=== PATIENT | female | born 1975 | race American Indian/Alaskan Native ===

== ENCOUNTER 2021-09-20 10:11 | Inpatient (IN) | payer OTHER ==
[2021-09-20] MEDS ORDERED: METOCLOPRAMIDE 10 MG/2 ML INJ IV ONE (10:55)
[2021-09-20] MEDS ORDERED: diphenhydrAMINE 50 MG/ML VIAL IV ONE (10:55)
[2021-09-20] MEDS ORDERED: SODIUM CHLORIDE 0.9% 1000 ML 1,000 ML IV ONE (10:55)
--- NOTE | 2021-09-20 11:01 | Emergency Department Report ---
ED General Adult HPI - General Chief complaint: Altered Mental Status Stated complaint: ALTERED MENTAL STATUS Time Seen by Provider: 09/20/21 10:43 Source: patient, EMS Mode of arrival: Stretcher Limitations: Other - History of Present Illness Initial comments: 46-year-old female with past medical history of type 1 diabetes, hypertension, neuropathic pain, depression, anxiety, autonomic dysfunction, and colon polyps presents to the hospital with abdominal pain, nausea, vomiting, and decreased responsiveness. Patient presents with discharge papers from [facility] with a diagnosis of colitis dated from September 13. Patient did have a CAT scan performed at that time ever, results are not available on discharge papers. Patient presented with abdominal pain, nausea, and vomiting for the past 2 days. Patient will not communicate reliably here in the ED. When I ask if she is recently at [facility] she states it was [place] which is contrary to her discharge paperwork. History obtained from EMS and nursing report. They state that family reported that patient often refused to speak when she gets like this and is in pain. Glucose elevated in the 300s as per EMS - Related Data Allergies Allergy/AdvReac Type Severity Reaction Status Date / Time YONI Inhibitors AdvReac Swelling Verified 09/20/21 11:31 amlodipine AdvReac Swelling Verified 09/20/21 11:31 morphine AdvReac Swelling Verified 09/20/21 11:31 ED Review of Systems ROS: Stated complaint: ALTERED MENTAL STATUS Other details as noted in HPI Comment: Unobtainable due to pts medical conditions ED Physical Exam - General Limitations: No Limitations - Other Other exam information: General: No acute distress Head: Atraumatic Eyes: normal appearance ENT: Moist mucous membranes Neck: Normal appearance, no midline tenderness Chest: Clear to auscultation bilaterally CV: Tachycardic regular rhythm Abdomen: Soft, normal bowel sounds, generalized tenderness greatest in the lower abdomen. No rebound or guard Back: Normal inspection Extremity: Normal inspection, full range of motion Neuro: Eyes closed but open spontaneous with equal handgrip. Not reliably answering questions or following commands Psych: Appropriate behavior Skin: No rash ED Course Vital Signs 09/20/21 09/20/21 09/20/21 10:32 11:29 11:31 Temperature 97.3 F L 97.8 F Pulse Rate 110 H 104 H 104 H Respiratory 20 18 14 Rate Blood Pressure 195/116 Blood Pressure 200/110 [Left] O2 Sat by Pulse 100 97 100 Oximetry 09/20/21 09/20/21 09/20/21 12:00 12:41 13:01 Temperature Pulse Rate 105 H 102 H 102 H Respiratory 13 18 20 Rate Blood Pressure 195/116 195/116 182/104 Blood Pressure [Left] O2 Sat by Pulse 100 100 Oximetry 09/20/21 13:31 Temperature Pulse Rate 102 H Respiratory 16 Rate Blood Pressure 182/104 Blood Pressure [Left] O2 Sat by Pulse 98 Oximetry ED Medical Decision Making - Lab Data Result diagrams: 09/20/21 11:07 09/20/21 11:07 Lab Results 09/20/21 09/20/21 09/20/21 Range/Units 11:07 11:07 11:07 WBC 5.9 (4.5-11.0) K/mm3 RBC 4.03 (3.65-5.03) M/mm3 Hgb 12.2 (10.1-14.3) gm/dl Hct 34.2 (30.3-42.9) % MCV 85 (79-97) fl MCH 30 (28-32) pg MCHC 36 H (30-34) % RDW 14.0 (13.2-15.2) % Plt Count 314 (140-440) K/mm3 Lymph % (Auto) 24.6 (13.4-35.0) % [place] % (Auto) 5.1 (0.0-7.3) % Eos % (Auto) 0.5 (0.0-4.3) % Baso % (Auto) 1.0 (0.0-1.8) % Lymph # (Auto) 1.4 (1.2-5.4) K/mm3 [place] # (Auto) 0.3 (0.0-0.8) K/mm3 Eos # (Auto) 0.0 (0.0-0.4) K/mm3 Baso # (Auto) 0.1 (0.0-0.1) K/mm3 Seg Neutrophils % 68.8 (40.0-70.0) % Seg Neutrophils # 4.0 (1.8-7.7) K/mm3 VBG pH (7.320-7.420) Sodium 140 (137-145) mmol/L Potassium 3.6 (3.6-5.0) mmol/L Chloride 102.2 (98-107) mmol/L Carbon Dioxide 29 (22-30) mmol/L Anion Gap 12 mmol/L BUN 11 (7-17) mg/dL Creatinine 1.0 (0.6-1.2) mg/dL Estimated GFR > 60 ml/min BUN/Creatinine Ratio 11 % Glucose 320 H (65-100) mg/dL POC Glucose (70-105) mg/dL Lactic Acid (0.7-2.0) mmol/L Calcium 8.7 (8.4-10.2) mg/dL Total Bilirubin 0.30 (0.1-1.2) mg/dL AST 25 (5-40) units/L ALT 22 (7-56) units/L Alkaline Phosphatase 61 (35-129) units/L Ammonia (25-60) umol/L Total Protein 5.7 L (6.3-8.2) g/dL Albumin 2.6 L (3.9-5) g/dL Albumin/Globulin Ratio 0.8 % Lipase 26 (13-60) units/L HCG, Qual Negative (Negative) Urine RBC (Auto) (0.0-6.0) /HPF U Epithel Cells (Auto) (0-13.0) /HPF Urine Opiates Screen Urine Methadone Screen Ur Barbiturates Screen Ur Phencyclidine Scrn Ur Amphetamines Screen U Benzodiazepines Scrn Urine Cocaine Screen U Marijuana (THC) Screen Drugs of Abuse Note Plasma/Serum Alcohol (0-0.07) % 09/20/21 09/20/21 09/20/21 Range/Units 11:07 11:07 11:07 WBC (4.5-11.0) K/mm3 RBC (3.65-5.03) M/mm3 Hgb (10.1-14.3) gm/dl Hct (30.3-42.9) % MCV (79-97) fl MCH (28-32) pg MCHC (30-34) % RDW (13.2-15.2) % Plt Count (140-440) K/mm3 Lymph % (Auto) (13.4-35.0) % [place] % (Auto) (0.0-7.3) % Eos % (Auto) (0.0-4.3) % Baso % (Auto) (0.0-1.8) % Lymph # (Auto) (1.2-5.4) K/mm3 [place] # (Auto) (0.0-0.8) K/mm3 Eos # (Auto) (0.0-0.4) K/mm3 Baso # (Auto) (0.0-0.1) K/mm3 Seg Neutrophils % (40.0-70.0) % Seg Neutrophils # (1.8-7.7) K/mm3 VBG pH 7.519 H (7.320-7.420) Sodium (137-145) mmol/L Potassium (3.6-5.0) mmol/L Chloride (98-107) mmol/L Carbon Dioxide (22-30) mmol/L Anion Gap mmol/L BUN (7-17) mg/dL Creatinine (0.6-1.2) mg/dL Estimated GFR ml/min BUN/Creatinine Ratio % Glucose (65-100) mg/dL POC Glucose (70-105) mg/dL Lactic Acid 1.70 (0.7-2.0) mmol/L Calcium (8.4-10.2) mg/dL Total Bilirubin (0.1-1.2) mg/dL AST (5-40) units/L ALT (7-56) units/L Alkaline Phosphatase (35-129) units/L Ammonia 28.0 (25-60) umol/L Total Protein (6.3-8.2) g/dL Albumin (3.9-5) g/dL Albumin/Globulin Ratio % Lipase (13-60) units/L HCG, Qual (Negative) Urine RBC (Auto) (0.0-6.0) /HPF U Epithel Cells (Auto) (0-13.0) /HPF Urine Opiates Screen Urine Methadone Screen Ur Barbiturates Screen Ur Phencyclidine Scrn Ur Amphetamines Screen U Benzodiazepines Scrn Urine Cocaine Screen U Marijuana (THC) Screen Drugs of Abuse Note Plasma/Serum Alcohol (0-0.07) % 09/20/21 09/20/21 09/20/21 Range/Units 11:07 12:32 Unknown WBC (4.5-11.0) K/mm3 RBC (3.65-5.03) M/mm3 Hgb (10.1-14.3) gm/dl Hct (30.3-42.9) % MCV (79-97) fl MCH (28-32) pg MCHC (30-34) % RDW (13.2-15.2) % Plt Count (140-440) K/mm3 Lymph % (Auto) (13.4-35.0) % [place] % (Auto) (0.0-7.3) % Eos % (Auto) (0.0-4.3) % Baso % (Auto) (0.0-1.8) % Lymph # (Auto) (1.2-5.4) K/mm3 [place] # (Auto) (0.0-0.8) K/mm3 Eos # (Auto) (0.0-0.4) K/mm3 Baso # (Auto) (0.0-0.1) K/mm3 Seg Neutrophils % (40.0-70.0) % Seg Neutrophils # (1.8-7.7) K/mm3 VBG pH (7.320-7.420) Sodium (137-145) mmol/L Potassium (3.6-5.0) mmol/L Chloride (98-107) mmol/L Carbon Dioxide (22-30) mmol/L Anion Gap mmol/L BUN (7-17) mg/dL Creatinine (0.6-1.2) mg/dL Estimated GFR ml/min BUN/Creatinine Ratio % Glucose (65-100) mg/dL POC Glucose 267 H (70-105) mg/dL Lactic Acid (0.7-2.0) mmol/L Calcium (8.4-10.2) mg/dL Total Bilirubin (0.1-1.2) mg/dL AST (5-40) units/L ALT (7-56) units/L Alkaline Phosphatase (35-129) units/L Ammonia (25-60) umol/L Total Protein (6.3-8.2) g/dL Albumin (3.9-5) g/dL Albumin/Globulin Ratio % Lipase (13-60) units/L HCG, Qual (Negative) Urine RBC (Auto) 12.0 (0.0-6.0) /HPF U Epithel Cells (Auto) 6.0 (0-13.0) /HPF Urine Opiates Screen Urine Methadone Screen Ur Barbiturates Screen Ur Phencyclidine Scrn Ur Amphetamines Screen U Benzodiazepines Scrn Urine Cocaine Screen U Marijuana (THC) Screen Drugs of Abuse Note Plasma/Serum Alcohol < 0.01 (0-0.07) % 09/20/21 Range/Units Unknown WBC (4.5-11.0) K/mm3 RBC (3.65-5.03) M/mm3 Hgb (10.1-14.3) gm/dl Hct (30.3-42.9) % MCV (79-97) fl MCH (28-32) pg MCHC (30-34) % RDW (13.2-15.2) % Plt Count (140-440) K/mm3 Lymph % (Auto) (13.4-35.0) % [place] % (Auto) (0.0-7.3) % Eos % (Auto) (0.0-4.3) % Baso % (Auto) (0.0-1.8) % Lymph # (Auto) (1.2-5.4) K/mm3 [place] # (Auto) (0.0-0.8) K/mm3 Eos # (Auto) (0.0-0.4) K/mm3 Baso # (Auto) (0.0-0.1) K/mm3 Seg Neutrophils % (40.0-70.0) % Seg Neutrophils # (1.8-7.7) K/mm3 VBG pH (7.320-7.420) Sodium (137-145) mmol/L Potassium (3.6-5.0) mmol/L Chloride (98-107) mmol/L Carbon Dioxide (22-30) mmol/L Anion Gap mmol/L BUN (7-17) mg/dL Creatinine (0.6-1.2) mg/dL Estimated GFR ml/min BUN/Creatinine Ratio % Glucose (65-100) mg/dL POC Glucose (70-105) mg/dL Lactic Acid (0.7-2.0) mmol/L Calcium (8.4-10.2) mg/dL Total Bilirubin (0.1-1.2) mg/dL AST (5-40) units/L ALT (7-56) units/L Alkaline Phosphatase (35-129) units/L Ammonia (25-60) umol/L Total Protein (6.3-8.2) g/dL Albumin (3.9-5) g/dL Albumin/Globulin Ratio % Lipase (13-60) units/L HCG, Qual (Negative) Urine RBC (Auto) (0.0-6.0) /HPF U Epithel Cells (Auto) (0-13.0) /HPF Urine Opiates Screen Negative Urine Methadone Screen Negative Ur Barbiturates Screen Negative Ur Phencyclidine Scrn Negative Ur Amphetamines Screen Negative U Benzodiazepines Scrn Negative Urine Cocaine Screen Negative U Marijuana (THC) Screen Negative Drugs of Abuse Note Disclamer Plasma/Serum Alcohol (0-0.07) % - Radiology Data Radiology results: report reviewed CT head/brain wo con INDICATION / CLINICAL INFORMATION: 46 years Female; ams vs refusal to speak. TECHNIQUE: Routine CT head without contrast. All CT scans at this location are performed using CT dose reduction for [employer] by means of automated exposure control. COMPARISON: None. FINDINGS: BRAIN / INTRACRANIAL CONTENTS: The motion degrades the image quality. However, the brain parenchyma appears to demonstrate appropriate attenuation. The ventricular system is within normal limits in size and configuration. There is no clear CT evidence of acute intracranial hemorrhage or significant mass effect. ORBITS: No significant abnormality of visualized orbits. SINUSES / MASTOIDS: There is complete opacification of the right at frontal and sinus and anterior ethmoid air cells. Mild mucosal thickening and opacification along the posterior right maxillary sinus. CRANIOCERVICAL JUNCTION: No significant abnormality. ADDITIONAL FINDINGS: None. IMPRESSION: 1. There is no clear CT evidence of acute intracranial process. CT ABDOMEN AND PELVIS WITH CONTRAST HISTORY: n,v abd pain COMPARISON: None TECHNIQUE: Routine abdominal and pelvic CT exam performed following intravenous contrast administration.. All CT scans at this location are performed using CT dose reduction for [employer] by means of automated exposure control. FINDINGS: CT ABDOMEN: Lung Bases: No significant abnormality. Liver: No significant abnormality. Biliary: No significant abnormality. Spleen: No significant abnormality. Unenlarged. Pancreas: No significant abnormality. Adrenals: No significant abnormality. Kidneys: No significant abnormality. Lymphatics: No lymphadenopathy. Vasculature: No significant abnormality. Bowel/Peritoneum: No significant abnormality. No free air. No free fluid. Appendix appears to be surgically absent. CT PELVIC: : Moderate distention of the urinary bladder. Lymphatics: No lymphadenopathy. Osseous Structures: No aggressive appearing osseous lesions. Additional Findings: None IMPRESSION: 1. No definite acute findings. 2. Moderate distention of urinary bladder. Correlation for bladder outlet obstruction recommended. - Medical Decision Making 46-year-old female with history of gastroparesis and diabetes presents to the hospital with exacerbate gastroparesis. CAT scans are unremarkable. Despite IV antiemetics patient continues to have dry heaving and p.o. intolerance. Elevated blood pressure likely sec addition to medication noncompliance and vomiting. IV labetalol ordered. Urine pending at disposition. Patient ordered IV fluids, insulin, and antiemetics in the ED Critical Care Time: No Critical care attestation.: If time is entered above; I have spent that time in minutes in the direct care of this critically ill patient, excluding procedure time. ED Disposition Clinical Impression: Gastroparesis due to DM, Hyperglycemia due to diabetes mellitus, Uncontrolled hypertension Disposition: 09 ADMITTED INPATIENT Is pt being admited?: Yes Condition: Stable Instructions: Diabetes Mellitus Type 2 in Adults (ED), Hypertension (ED) Time of Disposition: 15:21 (DR Rodriguez/hospitalist)
[2021-09-20] MEDS ORDERED: INSULIN REGULAR, HUMAN 100 UNITS/1 ML IV ONE (11:16)
[2021-09-20 12:17] LABS: Alanine Aminotransferase 22 units/L (7-56); Albumin 2.6 g/dL (3.9-5); BUN/Creatinine Ratio 11; Blood Urea Nitrogen 11 mg/dL (7-17); Calcium 8.7 mg/dL (8.4-10.2); Hemolysis Index 12
[2021-09-20 12:24] LABS: Basophils # (Auto) 0.1 K/mm3 (0.0-0.1); Eosinophils % (Auto) 0.5 % (0.0-4.3); Hematocrit 34.2 % (30.3-42.9); Hemoglobin 12.2 gm/dl (10.1-14.3); Lymphocytes # (Auto) 1.4 K/mm3 (1.2-5.4); Lymphocytes % (Auto) 24.6 % (13.4-35.0); Mean Corpuscular HGB Conc 36 % (30-34); Mean Corpuscular Volume 85 fl (79-97); Monocytes # (Auto) 0.3 K/mm3 (0.0-0.8); Monocytes % (Auto) 5.1 % (0.0-7.3); Platelet Count 314 K/mm3 (140-440); Red Blood Count 4.03 M/mm3 (3.65-5.03)
[2021-09-20] MEDS ORDERED: INSULIN REGULAR, HUMAN 100 UNITS/1 ML ONE (13:55)
[2021-09-20] MEDS ORDERED: ONDANSETRON 4 MG/2 ML INJ IV ONE (14:01)
[2021-09-20] MEDS ORDERED: ONDANSETRON 4 MG/2 ML INJ ONE (14:02)
[2021-09-20 14:40] LABS: Amphetamine Screen,Urine Negative; Benzodiazepines Screen,Urine Negative; Cannabinoid Screen,Urine Negative; Cocaine Screen,Urine Negative; Methadone Screen,Urine Negative; Opiate Screen,Urine Negative
--- NOTE | 2021-09-20 14:43 | Cat Scan Report ---
CT ABDOMEN AND PELVIS WITH CONTRAST HISTORY: n,v abd pain COMPARISON: None TECHNIQUE: Routine abdominal and pelvic CT exam performed following intravenous contrast administrat ion.. All CT scans at this location are performed using CT dose reduction for [facility] by means of autom ated exposure control. FINDINGS: CT ABDOMEN: Lung Bases: No significant abnormality. Liver: No significant abnormality. Biliary: No significant abnormality. Spleen: No significant abnormality. Unenlarged. Pancreas: No significant abnormality. Adrenals: No significant abnormality. Kidneys: No significant abnormality. Lymphatics: No lymphadenopathy. Vasculature: No significant abnormality. Bowel/Peritoneum: No significant abnormality. No free air. No free fluid. Appendix appears to be surg ically absent. CT PELVIC: : Moderate distention of the urinary bladder. Lymphatics: No lymphadenopathy. Osseous Structures: No aggressive appearing osseous lesions. Additional Findings: None IMPRESSION: 1. No definite acute findings. 2. Moderate distention of urinary bladder. Correlation for bladder outlet obstruction recommended. Signer Name: Enrico Browne MD Signed: 09/20/2021 2:38 PM Workstation Name: [email or web address]
--- NOTE | 2021-09-20 14:48 | Cat Scan Report ---
CT head/brain wo con INDICATION / CLINICAL INFORMATION: 46 years Female; ams vs refusal to speak. TECHNIQUE: Routine CT head without contrast. All CT scans at this location are performed using CT dos e reduction for [facility] by means of automated exposure control. COMPARISON: None. FINDINGS: BRAIN / INTRACRANIAL CONTENTS: The motion degrades the image quality. However, the brain parenchyma a ppears to demonstrate appropriate attenuation. The ventricular system is within normal limits in size and configuration. There is no clear CT evidence of acute intracranial hemorrhage or significant mas s effect. ORBITS: No significant abnormality of visualized orbits. SINUSES / MASTOIDS: There is complete opacification of the right at frontal and sinus and anterior et hmoid air cells. Mild mucosal thickening and opacification along the posterior right maxillary sinus. CRANIOCERVICAL JUNCTION: No significant abnormality. ADDITIONAL FINDINGS: None. IMPRESSION: 1. There is no clear CT evidence of acute intracranial process. Signer Name: Jose Dominguez MD Signed: 09/20/2021 2:44 PM Workstation Name: [id number]
[2021-09-20 15:17] LABS: Hyaline Casts,Urine 3 /LPF; Mucus,Urine FEW /HPF
[2021-09-20 15:30] LABS: Color,Urine Yellow (Yellow)
[2021-09-20 15:31] LABS: Bilirubin,Urine Negative (Negative); Blood,Urine 2+ (Negative); Protein,Urine >2000 mg dL mg/dL (Negative)
[2021-09-20] MEDS ORDERED: ACETAMINOPHEN 325 MG TAB PO PRN (20:35)
[2021-09-20] MEDS ORDERED: MORPHINE 2 MG/1 ML INJ IV PRN (20:35)
[2021-09-20] MEDS ORDERED: INSULIN LISPRO 100 UNIT/ML SUB-Q ONE (20:38)
--- NOTE | 2021-09-20 20:42 | History and Physical Report ---
History of Present Illness Date of examination: 09/20/21 Date of admission: 09/20/2021 Chief complaint: Persistent vomiting since last night History of present illness: 45-year-old -[place] male with history of insulin-dependent diabetes hypertension peripheral neuropathy and depression comes in for persistent abdominal pain nausea vomiting since last night. Also lethargic. Patient went to [facility] and was diagnosed with colitis. Discharged around hours on Rocephin. Patient is a poor historian. Patient's blood glucose levels were greater than 304 100. Vomiting 3-4 times. Lethargic. No seizures. No fever. No chills. Review of Systems ROS: Constitutional no weight loss or weight gain no fever or chills HEENT no sore throat no post nasal drip no diplopia Neck no neck stiffness no lymph gland enlargement Chest and lungs no shortness of breath cough or wheezing CVS no chest pain no diaphoresis no palpitations GI persistent vomiting and abdominal pain. 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 no seizures Skin no rash no itching Psychiatric no depression no homicidal or suicidal tendencies Hematologic no lymphedema or bruising Endocrine no polydipsia no polyuria no cold intolerance no heat intolerance Past History Past Medical History: diabetes, hypertension, hyperlipidemia, other (Gastroparesis.) Past Surgical History: No surgical history Social history: lives with family, full code Family history: diabetes, hypertension Medications and Allergies Allergies Allergy/AdvReac Type Severity Reaction Status Date / Time YONI Inhibitors AdvReac Swelling Verified 09/20/21 11:31 amlodipine AdvReac Swelling Verified 09/20/21 11:31 morphine AdvReac Swelling Verified 09/20/21 11:31 Review of Systems Ears, nose, mouth and throat: ear pain Exam - Constitutional Vitals: Temp Pulse Resp BP Pulse Ox 97.8 F 123 H 16 167/103 98 09/20/21 11:29 09/20/21 20:01 09/20/21 20:01 09/20/21 20:01 09/20/21 20:01 General appearance: Present: mild distress, well-nourished - EENT Eyes: Present: PERRL ENT: hearing intact, clear oral mucosa - Neck Neck: Present: supple, normal ROM - Respiratory Respiratory effort: normal Respiratory: bilateral: CTA - Cardiovascular Heart rate: 78 Rhythm: regular Heart Sounds: Present: S1 & S2. Absent: rub, click - Extremities Extremities: pulses symmetrical, No edema Peripheral Pulses: within normal limits - Abdominal General gastrointestinal: Present: soft, tender, non-distended, normal bowel sounds Localized gastrointestinal: tender: diffuse (No guarding) Female genitourinary: Present: normal - Integumentary Integumentary: Present: clear, warm, dry - Musculoskeletal Musculoskeletal: gait normal, strength equal bilaterally - Psychiatric Psychiatric: appropriate mood/affect, intact judgment & insight - Neurologic Neurologic: CNII-XII intact, moves all extremities, other (Lethargic) - Allied Health Allied health notes reviewed: nursing, case management Results - Labs CBC & Chem 7: 09/20/21 11:07 09/20/21 11:07 Labs: Laboratory Last Values WBC 5.9 K/mm3 (4.5-11.0) 09/20/21 11:07 RBC 4.03 M/mm3 (3.65-5.03) 09/20/21 11:07 Hgb 12.2 gm/dl (10.1-14.3) 09/20/21 11:07 Hct 34.2 % (30.3-42.9) 09/20/21 11:07 MCV 85 fl (79-97) 09/20/21 11:07 MCH 30 pg (28-32) 09/20/21 11:07 MCHC 36 % (30-34) H 09/20/21 11:07 RDW 14.0 % (13.2-15.2) 09/20/21 11:07 Plt Count 314 K/mm3 (140-440) 09/20/21 11:07 Lymph % (Auto) 24.6 % (13.4-35.0) 09/20/21 11:07 [place] % (Auto) 5.1 % (0.0-7.3) 09/20/21 11:07 Eos % (Auto) 0.5 % (0.0-4.3) 09/20/21 11:07 Baso % (Auto) 1.0 % (0.0-1.8) 09/20/21 11:07 Lymph # (Auto) 1.4 K/mm3 (1.2-5.4) 09/20/21 11:07 [place] # (Auto) 0.3 K/mm3 (0.0-0.8) 09/20/21 11:07 Eos # (Auto) 0.0 K/mm3 (0.0-0.4) 09/20/21 11:07 Baso # (Auto) 0.1 K/mm3 (0.0-0.1) 09/20/21 11:07 Seg Neutrophils % 68.8 % (40.0-70.0) 09/20/21 11:07 Seg Neutrophils # 4.0 K/mm3 (1.8-7.7) 09/20/21 11:07 VBG pH 7.519 (7.320-7.420) H 09/20/21 11:07 Sodium 140 mmol/L (137-145) 09/20/21 11:07 Potassium 3.6 mmol/L (3.6-5.0) 09/20/21 11:07 Chloride 102.2 mmol/L (98-107) 09/20/21 11:07 Carbon Dioxide 29 mmol/L (22-30) 09/20/21 11:07 Anion Gap 12 mmol/L 09/20/21 11:07 BUN 11 mg/dL (7-17) 09/20/21 11:07 Creatinine 1.0 mg/dL (0.6-1.2) 09/20/21 11:07 Estimated GFR > 60 ml/min 09/20/21 11:07 BUN/Creatinine Ratio 11 % 09/20/21 11:07 Glucose 320 mg/dL (65-100) H 09/20/21 11:07 POC Glucose 267 mg/dL (70-105) H 09/20/21 12:32 Lactic Acid 1.70 mmol/L (0.7-2.0) 09/20/21 11:07 Calcium 8.7 mg/dL (8.4-10.2) 09/20/21 11:07 Total Bilirubin 0.30 mg/dL (0.1-1.2) 09/20/21 11:07 AST 25 units/L (5-40) 09/20/21 11:07 ALT 22 units/L (7-56) 09/20/21 11:07 Alkaline Phosphatase 61 units/L (35-129) 09/20/21 11:07 Ammonia 28.0 umol/L (25-60) 09/20/21 11:07 Total Protein 5.7 g/dL (6.3-8.2) L 09/20/21 11:07 Albumin 2.6 g/dL (3.9-5) L 09/20/21 11:07 Albumin/Globulin Ratio 0.8 % 09/20/21 11:07 Lipase 26 units/L (13-60) 09/20/21 11:07 HCG, Qual Negative (Negative) 09/20/21 11:07 Urine Color Yellow (Yellow) 09/20/21 Unknown Urine Turbidity Clear (Clear) 09/20/21 Unknown Urine pH 7.0 (5.0-7.0) 09/20/21 Unknown Ur Specific [place] 1.010 (1.003-1.030) 09/20/21 Unknown Urine Protein >2000 mg dl mg/dL (Negative) 09/20/21 Unknown Urine Glucose (UA) 3+ mg/dL (Negative) 09/20/21 Unknown Urine Ketones Negative mg/dL (Negative) 09/20/21 Unknown Urine Blood 2+ (Negative) 09/20/21 Unknown Urine Nitrite Negative (Negative) 09/20/21 Unknown Ur Reducing Substances Not Reportable 09/20/21 Unknown Urine Bilirubin Negative (Negative) 09/20/21 Unknown Urine Ictotest Not Reportable 09/20/21 Unknown Urine Urobilinogen 0.0 mg/dL (<2.0) 09/20/21 Unknown Ur Leukocyte Esterase 1+ (Negative) 09/20/21 Unknown Urine WBC (Auto) 3.0 /HPF (0.0-6.0) 09/20/21 Unknown Urine RBC (Auto) 12.0 /HPF (0.0-6.0) 09/20/21 Unknown U Epithel Cells (Auto) 6.0 /HPF (0-13.0) 09/20/21 Unknown Hyaline Casts 3 /LPF 09/20/21 Unknown Urine Mucus Few /HPF 09/20/21 Unknown Urine Opiates Screen Negative 09/20/21 Unknown Urine Methadone Screen Negative 09/20/21 Unknown Ur Barbiturates Screen Negative 09/20/21 Unknown Ur Phencyclidine Scrn Negative 09/20/21 Unknown Ur Amphetamines Screen Negative 09/20/21 Unknown U Benzodiazepines Scrn Negative 09/20/21 Unknown Urine Cocaine Screen Negative 09/20/21 Unknown U Marijuana (THC) Screen Negative 09/20/21 Unknown Drugs of Abuse Note Disclamer 09/20/21 Unknown Plasma/Serum Alcohol < 0.01 % (0-0.07) 09/20/21 11:07 Short CBC 09/20/21 Range/Units 11:07 WBC 5.9 (4.5-11.0) K/mm3 Hgb 12.2 (10.1-14.3) gm/dl Hct 34.2 (30.3-42.9) % Plt Count 314 (140-440) K/mm3 BMP 09/20/21 11:07 Sodium 140 Potassium 3.6 Chloride 102.2 Carbon Dioxide 29 BUN 11 Creatinine 1.0 Glucose 320 H Calcium 8.7 Liver Function 09/20/21 Range/Units 11:07 Total Bilirubin 0.30 (0.1-1.2) mg/dL AST 25 (5-40) units/L ALT 22 (7-56) units/L Alkaline Phosphatase 61 (35-129) units/L Albumin 2.6 L (3.9-5) g/dL Urine 09/20/21 Range/Units Unknown Urine Color Yellow (Yellow) Urine pH 7.0 (5.0-7.0) Ur Specific [place] 1.010 (1.003-1.030) Urine Protein >2000 mg dl (Negative) mg/dL Urine Glucose (UA) 3+ (Negative) mg/dL Assessment and Plan Advance Directives: Yes (Full code) VTE prophylaxis?: Chemical Plan of care discussed with patient/family: Yes - Patient Problems (1) Acute encephalopathy Current Visit: Yes Status: Acute Plan to address problem: Secondary to higher glucose levels and persistent vomiting\ IV fluids and Control of blood glucose levels Clear liquid diet for now (2) Gastroparesis due to DM Current Visit: Yes Status: Acute Plan to address problem: Patient has recurrent right gastroparesis IV Reglan and IV Zofran IV fluids for now IV famotidine. Small meals more frequently. Nuclear study was not done for gastric emptying (3) Insulin dependent diabetes mellitus Current Visit: Yes Status: Chronic Plan to address problem: High-dose sliding scale per protocol and Lantus in the evening (4) Uncontrolled hypertension Current Visit: Yes Status: Chronic Plan to address problem: Patient initiated on antihypertensives and adjust medications as necessary (5) DVT prophylaxis Current Visit: Yes Status: Acute Plan to address problem: On heparin and GI prophylaxis (6) Advance care planning Current Visit: Yes Status: Acute Plan to address problem: Disease education pending for follow-up. Plan discussed diagnosis discussed. Patient acknowledged and agreed. Plan. +30 minutes. Patient is a 41
[2021-09-20] MEDS ORDERED: INSULIN GLARGINE 100 UNITS/ML SUB-Q SCH (22:00)
[2021-09-20] MEDS: HEPARIN 5,000 UNIT/1 ML VIAL SUB-Q SCH (22:07)
[2021-09-20] MEDS: FAMOTIDINE 20 MG/2 ML INJ IV SCH (22:08)
[2021-09-20] MEDS: ONDANSETRON 4 MG/2 ML INJ IV PRN (22:08)
[2021-09-20] MEDS: HYDROmorphone 0.5 MG/0.5 ML INJ IV PRN (22:08)
[2021-09-20] MEDS: VALSARTAN 160MG TAB PO SCH (22:09)
[2021-09-20] MEDS: SODIUM CHLORIDE 0.9% 1000 ML 1,000 ML IV SCH (22:13)
[2021-09-21] MEDS: METOCLOPRAMIDE 10 MG/2 ML INJ IV PRN (06:25)
[2021-09-21] MEDS ORDERED: hydrALAZINE 20 MG/1 ML INJ IV PRN (07:30)
[2021-09-21] MEDS ORDERED: DEXTROSE 50% IN WATER (25GM) 50 ML SYRINGE IV PRN (07:57)
[2021-09-21] MEDS ORDERED: carvediloL 12.5 MG TAB PO SCH ×2 (07:59→10:00)
[2021-09-21] MEDS: HYDROmorphone 0.5 MG/0.5 ML INJ IV PRN (08:47)
[2021-09-21] MEDS: hydrALAZINE 25 MG TAB PO SCH ×3 (08:47→21:20)
[2021-09-21] MEDS: VALSARTAN 160MG TAB PO SCH ×2 (08:47→21:32)
[2021-09-21] MEDS: ONDANSETRON 4 MG/2 ML INJ IV PRN ×2 (08:48→23:29)
[2021-09-21] MEDS ORDERED: PROMETHAZINE 25 MG TAB PO PRN (09:00)
[2021-09-21 09:47] LABS: Albumin 2.3 g/dL (3.9-5); Calcium 8.3 mg/dL (8.4-10.2)
[2021-09-21] MEDS: HEPARIN 5,000 UNIT/1 ML VIAL SUB-Q SCH ×2 (09:48→21:21)
[2021-09-21] MEDS: INSULIN NPH/REGULAR 70/30 INJ SUB-Q SCH ×2 (09:48→17:23)
[2021-09-21] MEDS: carvediloL 25 MG TAB PO SCH ×2 (09:48→21:20)
[2021-09-21] MEDS: FAMOTIDINE 20 MG/2 ML INJ IV SCH ×2 (09:49→21:20)
[2021-09-21 10:18] LABS: Basophils % (Auto) 0.4 % (0.0-1.8); Hematocrit 34.5 % (30.3-42.9); Hemoglobin 11.6 gm/dl (10.1-14.3); Lymphocytes # (Auto) 1.2 K/mm3 (1.2-5.4); Mean Corpuscular HGB Conc 34 % (30-34); Mean Corpuscular Volume 87 fl (79-97); Monocytes # (Auto) 0.4 K/mm3 (0.0-0.8); Monocytes % (Auto) 4.3 % (0.0-7.3); Platelet Count 354 K/mm3 (140-440); Red Blood Count 3.98 M/mm3 (3.65-5.03); Red Cell Distribution Width 14.8 % (13.2-15.2)
--- NOTE | 2021-09-21 11:10 | Electrocardiograph Report ---
[facility] Test Date: 2021-09-20 Test Time: 13:07:56 Pat Name: BRIANNE LYON Department: Room: A466 Gender: F Manager Lean: STEPHON : 1975 Requested By: DEJA ZARATE Order Number: [id number] Reading MD: Stanislav Hernandez Measurements Intervals [place] Rate: 101 P: 75 RI: 139 QRS: 43 QRSD: 75 T: 15 QT: 267 QTc: 346 Interpretive Statements Sinus tachycardia Probable left atrial enlargement ST elevation, consider inferior injury,can be artifact, suggest repeat EKG. No previous ECG available for comparison Electronically Signed On 09-21-2021 11:10:42 EDT by Stanislav Hernandez
[2021-09-21] MEDS: INSULIN REGULAR, HUMAN 100 UNITS/1 ML SUB-Q SCH ×3 (11:51→21:24)
[2021-09-21] MEDS ORDERED: LACTATED RINGERS 1,000 ML IV ONE (13:39)
--- NOTE | 2021-09-21 13:46 | Progress Note ---
Assessment and Plan Assessment and plan: #Acute metabolic encephalopathyresolved Likely secondary to elevated glucose levels in addition to persistent vomiting. Treated with IV fluid resuscitation and tighter blood glucose controls #Insulin dependent type II diabetes mellitus with hyperglycemia #Gastroparesis secondary to uncontrolled diabetes mellitus type 2 #Nausea and vomiting #Sinus tachycardia - hemoglobin A1c: 14.2 - home regimen: Unknown - current regimen: NPH 70/30 10 units twice daily + moderate SSI - blood glucose goal 140-180 while inpatient Transition from Zofran to Phenergan for nausea. According to patient, Zofran is ineffective. Administering 1 L LR bolus as patient is likely volume down. Continue to monitor vitals. #Hypertension - home medications: Clonidine 0.1 mg - current medications: Coreg 25 mg twice daily + valsartan 160 mg p.o. daily - SBP goal <160 and DBP goal <90 while inpatient - continue to monitor #Mild protein caloric malnutrition Albumin 2.6 Starting dietary supplementation tomorrow morning #Advanced care planning -Disease education conducted, care plan discussed, diagnoses discussed, prognosis discussed, and patient acknowledges understanding with care plan -Time: +30 min #Discharge planning - Patient is pending tighter glycemic control and ability for patient to tolerate p.o. intake and resolution of tachycardia - Case management has been made aware. - Discharge is tentatively 24 hours Disposition Plan: Continue medical management Total Time Spent with Patient (Minutes): 45 minutes History Interval history: No acute events overnight. Hospitalist Physical - Constitutional Vitals: Temp Pulse Resp BP Pulse Ox 98.7 F 112 H 18 114/70 97 09/21/21 11:46 09/21/21 11:46 09/21/21 11:46 09/21/21 11:46 09/21/21 11:46 General appearance: Present: no acute distress, well-nourished - EENT Eyes: Present: PERRL, EOM intact ENT: hearing intact, clear oral mucosa, dentition normal - Neck Neck: Present: supple, normal ROM - Respiratory Respiratory effort: normal Respiratory: bilateral: CTA - Cardiovascular Heart rate: 120 Rhythm: regular Heart Sounds: Present: S1 & S2 - Extremities Extremities: no ischemia, pulses intact, pulses symmetrical, No edema, normal temperature, normal color, Full ROM Peripheral Pulses: within normal limits - Abdominal General gastrointestinal: soft, non-tender, non-distended, normal bowel sounds - Integumentary Integumentary: Present: clear, warm, dry - Psychiatric Psychiatric: appropriate mood/affect, cooperative - Neurologic Neurologic: CNII-XII intact, moves all extremities - Allied Health Allied health notes reviewed: nursing Results - Labs CBC & Chem 7: 09/21/21 09:08 09/21/21 09:08 Labs: Laboratory Last Values WBC 9.5 K/mm3 (4.5-11.0) 09/21/21 09:08 RBC 3.98 M/mm3 (3.65-5.03) 09/21/21 09:08 Hgb 11.6 gm/dl (10.1-14.3) 09/21/21 09:08 Hct 34.5 % (30.3-42.9) 09/21/21 09:08 MCV 87 fl (79-97) 09/21/21 09:08 MCH 29 pg (28-32) 09/21/21 09:08 MCHC 34 % (30-34) 09/21/21 09:08 RDW 14.8 % (13.2-15.2) 09/21/21 09:08 Plt Count 354 K/mm3 (140-440) 09/21/21 09:08 Lymph % (Auto) 13.0 % (13.4-35.0) L 09/21/21 09:08 [place] % (Auto) 4.3 % (0.0-7.3) 09/21/21 09:08 Eos % (Auto) 0.0 % (0.0-4.3) 09/21/21 09:08 Baso % (Auto) 0.4 % (0.0-1.8) 09/21/21 09:08 Lymph # (Auto) 1.2 K/mm3 (1.2-5.4) 09/21/21 09:08 [place] # (Auto) 0.4 K/mm3 (0.0-0.8) 09/21/21 09:08 Eos # (Auto) 0.0 K/mm3 (0.0-0.4) 09/21/21 09:08 Baso # (Auto) 0.0 K/mm3 (0.0-0.1) 09/21/21 09:08 Seg Neutrophils % 82.3 % (40.0-70.0) H 09/21/21 09:08 Seg Neutrophils # 7.8 K/mm3 (1.8-7.7) H 09/21/21 09:08 VBG pH 7.519 (7.320-7.420) H 09/20/21 11:07 Sodium 139 mmol/L (137-145) 09/21/21 09:08 Potassium 3.5 mmol/L (3.6-5.0) L 09/21/21 09:08 Chloride 102.3 mmol/L (98-107) 09/21/21 09:08 Carbon Dioxide 24 mmol/L (22-30) 09/21/21 09:08 Anion Gap 16 mmol/L 09/21/21 09:08 BUN 15 mg/dL (7-17) 09/21/21 09:08 Creatinine 1.3 mg/dL (0.6-1.2) H 09/21/21 09:08 Estimated GFR 54 ml/min 09/21/21 09:08 BUN/Creatinine Ratio 12 % 09/21/21 09:08 Glucose 348 mg/dL (65-100) H 09/21/21 09:08 POC Glucose 307 mg/dL (70-105) H 09/21/21 11:44 Hemoglobin A1c 14.2 % (4-6) H 09/21/21 09:08 Lactic Acid 1.70 mmol/L (0.7-2.0) 09/20/21 11:07 Calcium 8.3 mg/dL (8.4-10.2) L 09/21/21 09:08 Total Bilirubin 0.30 mg/dL (0.1-1.2) 09/21/21 09:08 AST 19 units/L (5-40) 09/21/21 09:08 ALT 17 units/L (7-56) 09/21/21 09:08 Alkaline Phosphatase 55 units/L (35-129) 09/21/21 09:08 Ammonia 28.0 umol/L (25-60) 09/20/21 11:07 Total Protein 5.2 g/dL (6.3-8.2) L 09/21/21 09:08 Albumin 2.3 g/dL (3.9-5) L 09/21/21 09:08 Albumin/Globulin Ratio 0.8 % 09/21/21 09:08 Lipase 26 units/L (13-60) 09/20/21 11:07 HCG, Qual Negative (Negative) 09/20/21 11:07 Urine Color Yellow (Yellow) 09/20/21 Unknown Urine Turbidity Clear (Clear) 09/20/21 Unknown Urine pH 7.0 (5.0-7.0) 09/20/21 Unknown Ur Specific [place] 1.010 (1.003-1.030) 09/20/21 Unknown Urine Protein >2000 mg dl mg/dL (Negative) 09/20/21 Unknown Urine Glucose (UA) 3+ mg/dL (Negative) 09/20/21 Unknown Urine Ketones Negative mg/dL (Negative) 09/20/21 Unknown Urine Blood 2+ (Negative) 09/20/21 Unknown Urine Nitrite Negative (Negative) 09/20/21 Unknown Ur Reducing Substances Not Reportable 09/20/21 Unknown Urine Bilirubin Negative (Negative) 09/20/21 Unknown Urine Ictotest Not Reportable 09/20/21 Unknown Urine Urobilinogen 0.0 mg/dL (<2.0) 09/20/21 Unknown Ur Leukocyte Esterase 1+ (Negative) 09/20/21 Unknown Urine WBC (Auto) 3.0 /HPF (0.0-6.0) 09/20/21 Unknown Urine RBC (Auto) 12.0 /HPF (0.0-6.0) 09/20/21 Unknown U Epithel Cells (Auto) 6.0 /HPF (0-13.0) 09/20/21 Unknown Hyaline Casts 3 /LPF 09/20/21 Unknown Urine Mucus Few /HPF 09/20/21 Unknown Urine Opiates Screen Negative 09/20/21 Unknown Urine Methadone Screen Negative 09/20/21 Unknown Ur Barbiturates Screen Negative 09/20/21 Unknown Ur Phencyclidine Scrn Negative 09/20/21 Unknown Ur Amphetamines Screen Negative 09/20/21 Unknown U Benzodiazepines Scrn Negative 09/20/21 Unknown Urine Cocaine Screen Negative 09/20/21 Unknown U Marijuana (THC) Screen Negative 09/20/21 Unknown Drugs of Abuse Note Disclamer 09/20/21 Unknown Plasma/Serum Alcohol < 0.01 % (0-0.07) 09/20/21 11:07 Felix/IV: Voiding Method Toilet Active Medications - Current Medications Current Medications: Generic Name Dose Route Start Last Admin Trade Name Freq PRN Reason Stop Dose Admin Acetaminophen 650 mg 09/20/21 20:35 Acetaminophen 325 Mg Tab PO Q4H PRN Pain MILD(1-3)/Fever >100.5/HALL Carvedilol 25 mg 09/21/21 10:00 09/21/21 09:48 Carvedilol 25 Mg Tab PO 25 mg Q12HR ANDRAE Administration Dextrose 50 ml 09/21/21 07:57 Dextrose 50% In Water (25gm) 50 Ml Syringe IV Q30MIN PRN Hypoglycemia Protocol Famotidine 20 mg 09/20/21 22:00 09/21/21 09:49 Famotidine 20 Mg/2 Ml Inj IV 20 mg BID ANDRAE Administration Heparin Sodium (Porcine) 5,000 unit 09/20/21 22:00 09/21/21 09:48 Heparin 5,000 Unit/1 Ml Vial SUB-Q 5,000 unit Q12HR ANDRAE Administration Hydralazine HCl 10 mg 09/21/21 07:30 09/21/21 07:22 Hydralazine 20 Mg/1 Ml Inj IV 10 mg Q6HR PRN Administration Hypertension Hydralazine HCl 50 mg 09/21/21 07:00 09/21/21 08:47 Hydralazine 25 Mg Tab PO 50 mg Q8HR ANDRAE Administration Hydromorphone HCl 0.5 mg 09/20/21 20:35 09/21/21 08:47 Hydromorphone 0.5 Mg/0.5 Ml Inj IV 0.5 mg Q3H PRN Administration Pain , Severe (7-10) Sodium Chloride 1,000 mls @ 75 mls/hr 09/20/21 20:45 09/20/21 22:13 Nacl 0.9% 1000 Ml IV 75 mls/hr DIRECT ANDRAE Administration Lactated Ringer's 1,000 mls @ 500 mls/hr 09/21/21 13:39 Lactated Ringers IV 09/21/21 15:38 BOLUS ONE Insulin Human Isoph/Insulin Regular 10 unit 09/21/21 09:00 09/21/21 09:48 Insulin Nph/Regular 70/30 Inj SUB-Q 10 unit BIDDIAB ANDRAE Administration Insulin Human Regular 0 units 09/21/21 11:30 09/21/21 11:51 Insulin Regular, Human 100 Units/1 Ml SUB-Q 6 units ACHS ANDRAE Administration Protocol Metoclopramide HCl 10 mg 09/20/21 20:35 09/21/21 06:25 Metoclopramide 10 Mg/2 Ml Inj IV 10 mg Q6H PRN Administration Nausea And Vomiting Morphine Sulfate 2 mg 09/20/21 20:35 Morphine 2 Mg/1 Ml Inj IV Q4H PRN Pain, Moderate (4-6) Ondansetron HCl 4 mg 09/20/21 20:35 09/21/21 08:48 Ondansetron 4 Mg/2 Ml Inj IV 4 mg Q3H PRN Administration Nausea And Vomiting Promethazine HCl 25 mg 09/21/21 09:00 Promethazine 25 Mg Tab PO Q6H PRN Nausea And Vomiting Sodium Chloride 10 ml 09/20/21 22:00 09/21/21 09:49 Sodium Chloride 0.9% 10 Ml Flush Syringe IV 10 ml BID ANDRAE Administration Sodium Chloride 10 ml 09/20/21 20:35 09/21/21 07:23 Sodium Chloride 0.9% 10 Ml Flush Syringe IV 10 ml PRN PRN Administration LINE FLUSH Valsartan 160 mg 09/20/21 21:00 09/21/21 08:47 Valsartan 160mg Tab PO 160 mg Q12H ANDRAE Administration
[2021-09-22] MEDS: SODIUM CHLORIDE 0.9% 1000 ML 1,000 ML IV SCH (02:59)
[2021-09-22] MEDS: HYDROmorphone 0.5 MG/0.5 ML INJ IV PRN ×2 (03:00→06:01)
[2021-09-22] MEDS: METOCLOPRAMIDE 10 MG/2 ML INJ IV PRN ×3 (03:00→21:29)
[2021-09-22 04:56] LABS: Basophils % (Auto) 0.3 % (0.0-1.8); Eosinophils # (Auto) 0.1 K/mm3 (0.0-0.4); Eosinophils % (Auto) 0.9 % (0.0-4.3); Hemoglobin 9.7 gm/dl (10.1-14.3); Lymphocytes # (Auto) 1.5 K/mm3 (1.2-5.4); Lymphocytes % (Auto) 18.3 % (13.4-35.0); Mean Corpuscular HGB Conc 33 % (30-34); Mean Corpuscular Volume 87 fl (79-97); Monocytes # (Auto) 0.4 K/mm3 (0.0-0.8); Monocytes % (Auto) 5.2 % (0.0-7.3); Platelet Count 298 K/mm3 (140-440); Red Blood Count 3.34 M/mm3 (3.65-5.03); Red Cell Distribution Width 14.6 % (13.2-15.2)
[2021-09-22 05:19] LABS: Calcium 7.7 mg/dL (8.4-10.2)
[2021-09-22] MEDS: hydrALAZINE 25 MG TAB PO SCH ×4 (06:01→21:28)
[2021-09-22] MEDS: ONDANSETRON 4 MG/2 ML INJ IV PRN (06:01)
[2021-09-22] MEDS ORDERED: LACTATED RINGERS 1,000 ML IV ONE (07:31)
[2021-09-22] MEDS ORDERED: POTASSIUM CHLORIDE ER 20 MEQ TAB PO NR ×3 (08:30→14:49)
[2021-09-22] MEDS: carvediloL 25 MG TAB PO SCH ×2 (09:00→21:28)
[2021-09-22] MEDS: VALSARTAN 160MG TAB PO SCH ×2 (09:00→21:28)
[2021-09-22] MEDS: INSULIN REGULAR, HUMAN 100 UNITS/1 ML SUB-Q SCH ×4 (09:39→21:33)
[2021-09-22] MEDS: INSULIN NPH/REGULAR 70/30 INJ SUB-Q SCH ×2 (09:43→16:30)
[2021-09-22] MEDS: HEPARIN 5,000 UNIT/1 ML VIAL SUB-Q SCH ×2 (09:53→21:29)
[2021-09-22] MEDS: FAMOTIDINE 20 MG/2 ML INJ IV SCH ×2 (09:53→21:29)
[2021-09-22] MEDS ORDERED: CALCIUM GLUCONATE 1,000 MG in SODIUM CHLORIDE 0.9% 100 ML IV ONE (10:00)
[2021-09-22 13:41] LABS: Calcium 8.1 mg/dL (8.4-10.2)
--- NOTE | 2021-09-22 14:52 | Progress Note ---
Assessment and Plan Assessment and plan: #Acute metabolic encephalopathyresolved Likely secondary to elevated glucose levels in addition to persistent vomiting. Treated with IV fluid resuscitation and tighter blood glucose controls #Insulin dependent type II diabetes mellitus with hyperglycemia #Gastroparesis secondary to uncontrolled diabetes mellitus type 2 #Nausea and vomitingimproving #Sinus tachycardiaimproving - hemoglobin A1c: 14.2 - home regimen: Unknown - current regimen: NPH 70/30 10 units twice daily + moderate SSI - blood glucose goal 140-180 while inpatient Transition from Zofran to Phenergan for nausea. According to patient, Zofran is ineffective. Administering 1 L LR bolus as patient is likely volume down. Continue to monitor vitals. #Hypokalemia Potassium 3.2--> 3.1 Aggressive repletion of potassium. Monitor with repeat BMP tomorrow morning. #Hypertension - home medications: Clonidine 0.1 mg - current medications: Coreg 25 mg twice daily + valsartan 160 mg p.o. daily - SBP goal <160 and DBP goal <90 while inpatient - continue to monitor #Mild protein caloric malnutrition Albumin 2.6 Starting dietary supplementation tomorrow morning #Advanced care planning -Disease education conducted, care plan discussed, diagnoses discussed, progno sis discussed, and patient acknowledges understanding with care plan -Time: +30 min #Discharge planning - Patient is pending tighter glycemic control and ability for patient to tolerate p.o. intake and resolution of tachycardia - Case management has been made aware. - Discharge is tentatively 24 hours Disposition Plan: Continue medical management Total Time Spent with Patient (Minutes): 45 minutes History Interval history: No acute events overnight. Hospitalist Physical - Constitutional Vitals: Temp Pulse Resp BP Pulse Ox 97.3 F L 107 H 18 130/82 100 09/22/21 11:13 09/22/21 12:40 09/22/21 12:40 09/22/21 11:13 09/22/21 12:40 General appearance: Present: no acute distress, well-nourished - EENT Eyes: Present: PERRL, EOM intact ENT: hearing intact, clear oral mucosa, dentition normal - Neck Neck: Present: supple, normal ROM - Respiratory Respiratory effort: normal Respiratory: bilateral: CTA - Cardiovascular Rhythm: regular Heart Sounds: Present: S1 & S2 - Extremities Extremities: no ischemia, pulses intact, pulses symmetrical, No edema, normal temperature, normal color, Full ROM Peripheral Pulses: within normal limits - Abdominal General gastrointestinal: soft, non-tender, non-distended, normal bowel sounds - Integumentary Integumentary: Present: clear, warm, dry - Psychiatric Psychiatric: appropriate mood/affect, memory intact, cooperative - Neurologic Neurologic: CNII-XII intact, moves all extremities - Allied Health Allied health notes reviewed: nursing, case management Results - Labs CBC & Chem 7: 09/22/21 04:23 09/22/21 12:47 Labs: Laboratory Last Values WBC 8.3 K/mm3 (4.5-11.0) 09/22/21 04: RBC 3.34 M/mm3 (3.65-5.03) L 09/22/21 04: Hgb 9.7 gm/dl (10.1-14.3) L 09/22/21 04:23 Hct 29.0 % (30.3-42.9) L 09/22/21 04:23 MCV 87 fl (79-97) 09/22/21 04: MCH 29 pg (28-32) 09/22/21 04:23 MCHC 33 % (30-34) 09/22/21 04:23 RDW 14.6 % (13.2-15.2) 09/22/21 04:23 Plt Count 298 K/mm3 (140-440) 09/22/21 04:23 Lymph % (Auto) 18.3 % (13.4-35.0) 09/22/21 04:23 [place] % (Auto) 5.2 % (0.0-7.3) 09/22/21 04: Eos % (Auto) 0.9 % (0.0-4.3) 09/22/21 04:23 Baso % (Auto) 0.3 % (0.0-1.8) 09/22/21 04: Lymph # (Auto) 1.5 K/mm3 (1.2-5.4) 09/22/21 04:23 [place] # (Auto) 0.4 K/mm3 (0.0-0.8) 09/22/21 04:23 Eos # (Auto) 0.1 K/mm3 (0.0-0.4) 09/22/21 04:23 Baso # (Auto) 0.0 K/mm3 (0.0-0.1) 09/22/21 04:23 Seg Neutrophils % 75.3 % (40.0-70.0) H 09/22/21 04:23 Seg Neutrophils # 6.2 K/mm3 (1.8-7.7) 09/22/21 04:23 VBG pH 7.519 (7.320-7.420) H 09/20/21 11:07 Sodium 143 mmol/L (137-145) 09/22/21 12:47 Potassium 3.1 mmol/L (3.6-5.0) L 09/22/21 12:47 Chloride 107.4 mmol/L (98-107) H 09/22/21 12:47 Carbon Dioxide 28 mmol/L (22-30) 09/22/21 12:47 Anion Gap 11 mmol/L 09/22/21 12:47 BUN 22 mg/dL (7-17) H 09/22/21 12:47 Creatinine 1.4 mg/dL (0.6-1.2) H 09/22/21 12:47 Estimated GFR 49 ml/min 09/22/21 12:47 BUN/Creatinine Ratio 16 % 09/22/21 12:47 Glucose 190 mg/dL (65-100) H 09/22/21 12:47 POC Glucose 197 mg/dL (70-105) H 09/22/21 11:52 Hemoglobin A1c 14.2 % (4-6) H 09/21/21 09:08 Lactic Acid 1.70 mmol/L (0.7-2.0) 09/20/21 11:07 Calcium 8.1 mg/dL (8.4-10.2) L 09/22/21 12:47 Total Bilirubin 0.30 mg/dL (0.1-1.2) 09/21/21 09:08 AST 19 units/L (5-40) 09/21/21 09:08 ALT 17 units/L (7-56) 09/21/21 09:08 Alkaline Phosphatase 55 units/L (35-129) 09/21/21 09:08 Ammonia 28.0 umol/L (25-60) 09/20/21 11:07 Total Protein 5.2 g/dL (6.3-8.2) L 09/21/21 09:08 Albumin 2.3 g/dL (3.9-5) L 09/21/21 09:08 Albumin/Globulin Ratio 0.8 % 09/21/21 09:08 Lipase 26 units/L (13-60) 09/20/21 11:07 HCG, Qual Negative (Negative) 09/20/21 11:07 Urine Color Yellow (Yellow) 09/20/21 Unknown Urine Turbidity Clear (Clear) 09/20/21 Unknown Urine pH 7.0 (5.0-7.0) 09/20/21 Unknown Ur Specific [place] 1.010 (1.003-1.030) 09/20/21 Unknown Urine Protein >2000 mg dl mg/dL (Negative) 09/20/21 Unknown Urine Glucose (UA) 3+ mg/dL (Negative) 09/20/21 Unknown Urine Ketones Negative mg/dL (Negative) 09/20/21 Unknown Urine Blood 2+ (Negative) 09/20/21 Unknown Urine Nitrite Negative (Negative) 09/20/21 Unknown Ur Reducing Substances Not Reportable 09/20/21 Unknown Urine Bilirubin Negative (Negative) 09/20/21 Unknown Urine Ictotest Not Reportable 09/20/21 Unknown Urine Urobilinogen 0.0 mg/dL (<2.0) 09/20/21 Unknown Ur Leukocyte Esterase 1+ (Negative) 09/20/21 Unknown Urine WBC (Auto) 3.0 /HPF (0.0-6.0) 09/20/21 Unknown Urine RBC (Auto) 12.0 /HPF (0.0-6.0) 09/20/21 Unknown U Epithel Cells (Auto) 6.0 /HPF (0-13.0) 09/20/21 Unknown Hyaline Casts 3 /LPF 09/20/21 Unknown Urine Mucus Few /HPF 09/20/21 Unknown Urine Opiates Screen Negative 09/20/21 Unknown Urine Methadone Screen Negative 09/20/21 Unknown Ur Barbiturates Screen Negative 09/20/21 Unknown Ur Phencyclidine Scrn Negative 09/20/21 Unknown Ur Amphetamines Screen Negative 09/20/21 Unknown U Benzodiazepines Scrn Negative 09/20/21 Unknown Urine Cocaine Screen Negative 09/20/21 Unknown U Marijuana (THC) Screen Negative 09/20/21 Unknown Drugs of Abuse Note Disclamer 09/20/21 Unknown Plasma/Serum Alcohol < 0.01 % (0-0.07) 09/20/21 11:07 Felix/IV: Voiding Method Toilet Active Medications - Current Medications Current Medications: Generic Name Dose Route Start Last Admin Trade Name Freq PRN Reason Stop Dose Admin Acetaminophen 650 mg 09/20/21 20:35 Acetaminophen 325 Mg Tab PO Q4H PRN Pain MILD(1-3)/Fever >100.5/HALL Carvedilol 25 mg 09/21/21 10:00 09/22/21 09:00 Carvedilol 25 Mg Tab PO Not Given Q12HR ANDRAE Dextrose 50 ml 09/21/21 07:57 Dextrose 50% In Water (25gm) 50 Ml Syringe IV Q30MIN PRN Hypoglycemia Protocol Famotidine 20 mg 09/20/21 22:00 09/22/21 09:53 Famotidine 20 Mg/2 Ml Inj IV 20 mg BID ANDRAE Administration Heparin Sodium (Porcine) 5,000 unit 09/20/21 22:00 09/22/21 09:53 Heparin 5,000 Unit/1 Ml Vial SUB-Q 5,000 unit Q12HR ANDRAE Administration Hydralazine HCl 10 mg 09/21/21 07:30 09/21/21 07:22 Hydralazine 20 Mg/1 Ml Inj IV 10 mg Q6HR PRN Administration Hypertension Hydralazine HCl 50 mg 09/21/21 07:00 09/22/21 13:03 Hydralazine 25 Mg Tab PO Not Given Q8HR ANDRAE Sodium Chloride 1,000 mls @ 75 mls/hr 09/20/21 20:45 09/22/21 02:59 Nacl 0.9% 1000 Ml IV 75 mls/hr DIRECT ANDRAE Administration Insulin Human Isoph/Insulin Regular 10 unit 09/21/21 09:00 09/22/21 09:43 Insulin Nph/Regular 70/30 Inj SUB-Q 10 unit BIDDIAB ANDRAE Administration Insulin Human Regular 0 units 09/21/21 11:30 09/22/21 12:30 Insulin Regular, Human 100 Units/1 Ml SUB-Q 2 units ACHS ANDRAE Administration Protocol Metoclopramide HCl 10 mg 09/20/21 20:35 09/22/21 03:00 Metoclopramide 10 Mg/2 Ml Inj IV 10 mg Q6H PRN Administration Nausea And Vomiting Morphine Sulfate 2 mg 09/20/21 20:35 Morphine 2 Mg/1 Ml Inj IV Q4H PRN Pain, Moderate (4-6) Ondansetron HCl 4 mg 09/20/21 20:35 09/22/21 06:01 Ondansetron 4 Mg/2 Ml Inj IV 4 mg Q3H PRN Administration Nausea And Vomiting Promethazine HCl 25 mg 09/21/21 09:00 09/21/21 13:46 Promethazine 25 Mg Tab PO 25 mg Q6H PRN Administration Nausea And Vomiting Sodium Chloride 10 ml 09/20/21 22:00 09/22/21 09:53 Sodium Chloride 0.9% 10 Ml Flush Syringe IV 10 ml BID ANDRAE Administration Sodium Chloride 10 ml 09/20/21 20:35 09/21/21 07:23 Sodium Chloride 0.9% 10 Ml Flush Syringe IV 10 ml PRN PRN Administration LINE FLUSH Valsartan 160 mg 09/20/21 21:00 09/22/21 09:00 Valsartan 160mg Tab PO Not Given Q12H ANDRAE
[2021-09-22] MEDS ORDERED: POTASSIUM CHLORIDE 10 MEQ 10 MEQ/100 ML BAG IV SCH (15:00)
[2021-09-23] MEDS: METOCLOPRAMIDE 10 MG/2 ML INJ IV PRN (05:58)
[2021-09-23] MEDS: hydrALAZINE 25 MG TAB PO SCH (05:58)
[2021-09-23 06:02] LABS: Calcium 8.2 mg/dL (8.4-10.2)
--- NOTE | 2021-09-23 08:05 | Discharge Summary ---
Providers - Providers Date of Admission: 09/20/21 20:35 Date of discharge: 09/23/21 Attending physician: ELIUD MENON MD Primary care physician: [employer] [employer]PA[employer] Hospitalization Reason for admission: Acute metabolic encephalopathy Condition: Stable Pertinent studies: Reviewed. Procedures: None. Hospital course: Patient is a 46-year-old female past medical history of insulin-dependent type 2 diabetes mellitus with hyperglycemia, hypertension, neuropathic pain, gastroparesis, depression, anxiety, autonomic dysfunction, and history of colon polyps who presented to the emergency department with complaints of abdominal pain, nausea, vomiting, and decreased responsiveness as described by her family. The patient was recently discharged from [facility] with a diagnosis of colitis dated on 09/13/2021. Patient was not communicating adequately in the ED. Patient's family endorsed that when she is in severe pain she refuses to speak. According to EMS, patient's blood glucose was elevated in the 300s. On arrival in the ED, the patient was hemodynamically stable with a blood pressure of 200/110 and tachycardic at 110. Patient's labs are remarkable for blood glucose of 320. CT abdomen and pelvis with contrast was unremarkable, aside from moderate distention of the urinary bladder. Patient was admitted for further management which included aggressive IV fluid repletion, antiemetics, blood glucose control, and electrolyte replacement. Patient was counseled at length about the importance of dietary changes and medication adherence given her elevated A1c of 14.2. The patient expressed understanding. Patient is medically clear for discharge. Disposition: 01 HOME / SELF CARE / HOMELESS Final Discharge Diagnosis (Prints w/discharge instructions): Acute metabolic encephalopathy, insulin-dependent type 2 diabetes mellitus with hyperglycemia, gastroparesis secondary to uncontrolled diabetes mellitus type 2, nausea and vomiting, sinus tachycardia, hypokalemia, hypertension, mild protein caloric m alnutrition Time spent for discharge: 45 min Core Measure Documentation - Palliative Care Palliative Care/ Comfort Measures: Not Applicable - Core Measures Any of the following diagnoses?: none Exam - Constitutional Vitals: Temp Pulse Resp BP Pulse Ox 99.0 F 100 H 18 142/80 100 09/23/21 04:55 09/23/21 07:55 09/23/21 07:55 09/23/21 05:58 09/23/21 07:55 General appearance: Present: no acute distress, well-nourished - EENT Eyes: Present: PERRL, EOM intact ENT: hearing intact, clear oral mucosa, dentition normal - Neck Neck: Present: supple, normal ROM - Respiratory Respiratory effort: normal Respiratory: bilateral: CTA - Cardiovascular Rhythm: regular Heart Sounds: Present: S1 & S2 - Extremities Extremities: no ischemia, pulses intact, pulses symmetrical, No edema, normal temperature, normal color, Full ROM Peripheral Pulses: within normal limits - Abdominal General gastrointestinal: Present: soft, non-tender, non-distended, normal bowel sounds Female genitourinary: Present: deferred - Rectal Rectal Exam: deferred - Integumentary Integumentary: Present: clear, warm, dry - Musculoskeletal Musculoskeletal: strength equal bilaterally - Psychiatric Psychiatric: appropriate mood/affect, cooperative - Neurologic Neurologic: CNII-XII intact, moves all extremities - Allied Health Allied health notes reviewed: nursing Plan Activity: advance as tolerated Diet: low salt, diabetic Additional Instructions: Patient is a 46-year-old female past medical history of insulin-dependent type 2 diabetes mellitus with hyperglycemia, hypertension, neuropathic pain, gastroparesis, depression, anxiety, autonomic dysfunction, and history of colon polyps who presented to the emergency department with complaints of abdominal pain, nausea, vomiting, and decreased responsiveness as described by her family. The patient was recently discharged from [facility] with a diagnosis of colitis dated on 09/13/2021. Patient was not communicating adequately in the ED. Patient's family endorsed that when she is in severe pain she refuses to speak. According to EMS, patient's blood glucose was elevated in the 300s. On arrival in the ED, the patient was hemodynamically stable with a blood pressure of 200/110 and tachycardic at 110. Patient's labs are remarkable for blood glucose of 320. CT abdomen and pelvis with contrast was unremarkable, aside from moderate distention of the urinary bladder. Patient was admitted for further management which included aggressive IV fluid repletion, antiemetics, blood glucose control, and electrolyte replacement. Patient was counseled at length about the importance of dietary changes and medication adherence given her elevated A1c of 14.2. The patient expressed understanding. Patient is medically clear for discharge. Care Plan Goals: Patient is medically clear for discharge. Assessment: Patient is a 46-year-old female past medical history of insulin-dependent type 2 diabetes mellitus with hyperglycemia, hypertension, neuropathic pain, gastroparesis, depression, anxiety, autonomic dysfunction, and history of colon polyps who presented to the emergency department with complaints of abdominal pain, nausea, vomiting, and decreased responsiveness as described by her family. The patient was recently discharged from [facility] with a diagnosis of colitis dated on 09/13/2021. Patient was not communicating adequately in the ED. Patient's family endorsed that when she is in severe pain she refuses to speak. According to EMS, patient's blood glucose was elevated in the 300s. On arrival in the ED, the patient was hemodynamically stable with a blood pressure of 200/110 and tachycardic at 110. Patient's labs are remarkable for blood glucose of 320. CT abdomen and pelvis with contrast was unremarkable, aside from moderate distention of the urinary bladder. Patient was admitted for further management which included aggressive IV fluid repletion, antiemetics, blood glucose control, and electrolyte replacement. Patient was counseled at length about the importance of dietary changes and medication adherence given her elevated A1c of 14.2. The patient expressed understanding. Patient is medically clear for discharge. Follow up with: PRIMARY CARE, [Primary Care Provider] - 3-5 Days Forms: Work/School Release Form Prescriptions: Metoprolol [Lopressor TAB] 25 mg PO BID #60 tablet Promethazine [Phenergan] 25 mg PO Q6H PRN #20 tablet PRN Reason: Nausea And Vomiting
[2021-09-23 08:22] VITALS: BP 127/79
[2021-09-23] MEDS: INSULIN REGULAR, HUMAN 100 UNITS/1 ML SUB-Q SCH (08:30)
[2021-09-23] MEDS ORDERED: POTASSIUM CHLORIDE ER 20 MEQ TAB PO SCH (09:00)
[2021-09-23] MEDS: FAMOTIDINE 20 MG/2 ML INJ IV SCH (09:33)
[2021-09-23] MEDS: HEPARIN 5,000 UNIT/1 ML VIAL SUB-Q SCH (09:33)
[2021-09-23] MEDS: INSULIN NPH/REGULAR 70/30 INJ SUB-Q SCH (09:34)
[2021-09-23] MEDS ORDERED: VALSARTAN 160MG TAB PO SCH (10:00)
[2021-09-23] MEDS ORDERED: METOPROLOL TARTRATE 25 MG TAB PO SCH (10:00)
[2021-09-23] MEDS ORDERED: VALSARTAN 40 MG TAB PO SCH (10:00)
== END 2021-09-23 12:00 | disposition home or self-care (01) | DRG 73 ==
LOC: ED 10:11 → 4A 20:35
PROVIDERS: ADMIT Internal Medicine; ATTEND Student in an Organized Health Care Education/Training Program
DX: E11.43 Type 2 diabetes mellitus with diabetic autonomic (poly)neuropathy (principal); G93.41 Metabolic encephalopathy; E44.1 Mild protein-calorie malnutrition; E11.65 Type 2 diabetes mellitus with hyperglycemia; K31.84 Gastroparesis; Z68.24 Body mass index [BMI] 24.0-24.9, adult; I10 Essential (primary) hypertension; F32.A Depression, unspecified; F41.9 Anxiety disorder, unspecified; R00.0 Tachycardia, unspecified; E87.6 Hypokalemia; Z79.4 Long term (current) use of insulin; Z88.5 Allergy status to narcotic agent; Z88.8 Allergy status to other drugs, medicaments and biological substances
CPT/HCPCS: 36415; 70450; 74177; 80048; 80053; 80307; 80320; 81001; 82140; 82805; 82962; 83036; 83690; 84703; 85025; 93005; G0378; J3490; Q0177; Q9967; G0480; J0360; J0610; J1170; J1200; J1644; J1815; J2405; J2765; J7030; J7120; Q0169